=== PATIENT | male | born 1990 | race Two or more races ===

== ENCOUNTER → 2023-11-01 | Emergency (ER) | payer OTHER ==
[~2023-11-01] VITALS: Ht 177.8 cm; Wt 81.6 kg
[~2023-11-01] MED LIST: NAPROXEN500 MG PO
== END | disposition home or self-care (01) ==
LOC: ER 15:42
DX: R51.9 Headache, unspecified (principal); S05.11XA Contusion of eyeball and orbital tissues, right eye, initial encounter; Y04.2XXA Assault by strike against or bumped into by another person, initial encounter; Y93.89 Activity, other specified; Y92.89 Other specified places as the place of occurrence of the external cause

== ENCOUNTER → 2024-09-11 | Emergency (ER) | payer OTHER ==
[~2024-09-11] VITALS: Ht 177.8 cm; Wt 81.6 kg
[~2024-09-11] MED LIST changes: +ATIVAN0.5 M1 PO; +RESTORIL7.5 MG PO
== END | disposition left against medical advice (07) ==
LOC: ER 17:03
DX: Z53.21 Procedure and treatment not carried out due to patient leaving prior to being seen by health care provider (principal)